=== PATIENT | male | born 1960 | race American Indian/Alaskan Native ===

== ENCOUNTER 2017-08-09 19:13 | Inpatient (IN) | payer OTHER ==
[2017-08-09] MEDS ORDERED: TYLENOL ONE (19:21)
[2017-08-09] MEDS ORDERED: TYLENOL PO ONE (19:23)
--- NOTE | 2017-08-09 22:07 | XRay Report ---
FINAL REPORT PROCEDURE: XR CHEST ROUTINE 2V TECHNIQUE: PA and lateral chest radiographs were obtained. CPT 55702 HISTORY: Cough and congestion COMPARISON: No prior studies are available for comparison. FINDINGS: Heart size and pulmonary vasculature appear normal. There is minimal blunting of the left lateral costophrenic angle suggesting minimal effusion. There appears to be patchy infiltrate present in the left lower lobe. There is also an asymmetric density in the right upper lobe lateral to the right hilum. This may represent a a 2nd location of infiltrate. I cannot exclude a pulmonary nodule. This density extends over approximately 2.1 x 1.2 centimeter. Small amount of patchy alveolar density also present in the right lower lobe. No acute bony abnormalities are identified. IMPRESSION: Alveolar densities in both lower lobes greatest on the left suggesting pneumonia. Possible additional infiltrate right upper lobe versus a pulmonary nodule. Follow-up chest x-ray recommended to ensure these densities resolve. Minimal left pleural effusion is present..
[2017-08-10] MEDS ORDERED: LEVAQUIN 750MG/150ML 750 MG/150 ML BAG IV ONE (17:08)
[2017-08-10] MEDS ORDERED: NACL 0.9% 1000 ML IV ONE ×2 (17:08→19:37)
[2017-08-10] MEDS ORDERED: TYLENOL ONE (17:53)
[2017-08-10] MEDS ORDERED: MOTRIN PO ONE ×3 (17:53→17:56)
[2017-08-10] MEDS ORDERED: LEVAQUIN PO ONE (17:54)
[2017-08-10] MEDS ORDERED: PROVENTIL IH ONE (17:54)
--- NOTE | 2017-08-10 17:56 | Emergency Department Report ---
ED General Adult HPI - General Chief complaint: Fever Stated complaint: FEVER Source: patient, RN notes reviewed Mode of arrival: Ambulatory Limitations: No Limitations - History of Present Illness Initial comments: This is a 56-year-old male who was previously unknown to this provider, the patient's does not have any chronic medical conditions that he is aware of. He presents to the ER with cough, malaise, mucus production, weakness, body aches for 3-4 days, also reports dark and Coca-Cola colored urine. Positive fevers, positive chills. Symptoms present for greater than 72 hours. -: Gradual Severity scale (0 -10): 8 Consistency: constant Improves with: rest Worsens with: movement Associated Symptoms: cough, diaphoresis, fever/chills, loss of appetite, malaise , shortness of breath, weakness. denies: confusion, chest pain - Related Data Home Medications Medication Instructions Recorded Confirmed Last Taken No Known Home Medications [No 08/11/17 08/11/17 Unknown Reported Home Medications] Allergies Allergy/AdvReac Type Severity Reaction Status Date / Time No Known Allergies Allergy Unverified 08/09/17 19:20 ED Review of Systems ROS: Stated complaint: FEVER Other details as noted in HPI Constitutional: fever, malaise Eyes: denies: vision change ENT: congestion Respiratory: cough, shortness of breath Cardiovascular: denies: chest pain Gastrointestinal: denies: vomiting Genitourinary: as per HPI Musculoskeletal: arthralgia, myalgia Skin: denies: lesions Neurological: weakness Psychiatric: denies: anxiety ED Past Medical Hx - Past Medical History Previous Medical History?: No - Surgical History Past Surgical History?: No - Social History Smoking Status: Never Smoker Substance Use Type: None - Medications Home Medications: Home Medications Medication Instructions Recorded Confirmed Last Taken Type No Known Home Medications [No 08/11/17 08/11/17 Unknown History Reported Home Medications] ED Physical Exam - General Limitations: No Limitations General appearance: alert, in no apparent distress - Head Head exam: Present: atraumatic, normocephalic - Eye Eye exam: Present: normal appearance, EOMI. Absent: nystagmus - ENT ENT exam: Present: normal exam, normal orophraynx, mucous membranes moist - Neck Neck exam: Present: normal inspection, full ROM. Absent: tenderness, meningismus - Respiratory Respiratory exam: Present: rhonchi. Absent: respiratory distress - Cardiovascular Cardiovascular Exam: Present: normal rhythm, tachycardia, normal heart sounds. Absent: systolic murmur, diastolic murmur, rubs, gallop - GI/Abdominal GI/Abdominal exam: Present: soft, normal bowel sounds. Absent: distended, tenderness, guarding, rebound, rigid, pulsatile mass - Rectal Rectal exam: Present: deferred - Extremities Exam Extremities exam: Present: normal inspection, full ROM, normal capillary refill. Absent: pedal edema, joint swelling, calf tenderness - Back Exam Back exam: Present: normal inspection, full ROM. Absent: tenderness, CVA tenderness (R), paraspinal tenderness, vertebral tenderness - Neurological Exam Neurological exam: Present: alert, oriented X3, CN II-XII intact, normal gait, other (Extraocular movements intact. Tongue midline. No facial droop. Facial sensation intact to light touch in the V1, V2, V3 distribution bilaterally. 5 and 5 strength in 4 extremities.. Sensation is intact to light touch in 4 extremities.). Absent: motor sensory deficit - Psychiatric Psychiatric exam: Present: normal affect, normal mood - Skin Skin exam: Present: warm, dry, intact, normal color. Absent: rash ED Course Vital Signs 08/09/17 08/10/17 08/10/17 19:20 01:26 12:12 Temperature 102.2 F H 99.4 F 101.6 F H Pulse Rate 116 H 100 H 107 H Pulse Rate [ Anterior Bilateral Throughout] Respiratory 20 18 18 Rate Respiratory Rate [Anterior Bilateral Throughout] Blood Pressure 146/90 137/91 144/87 Blood Pressure [Left] O2 Sat by Pulse 96 96 100 Oximetry 08/10/17 08/10/17 08/10/17 17:34 18:18 18:20 Temperature 101.5 F H Pulse Rate 11 L 107 H Pulse Rate [ Anterior Bilateral Throughout] Respiratory 21 21 Rate Respiratory Rate [Anterior Bilateral Throughout] Blood Pressure Blood Pressure 136/83 [Left] O2 Sat by Pulse 98 98 Oximetry 08/10/17 08/10/17 08/10/17 18:36 18:59 21:00 Temperature Pulse Rate 96 H Pulse Rate [ 108 H 104 H Anterior Bilateral Throughout] Respiratory 24 Rate Respiratory 18 20 Rate [Anterior Bilateral Throughout] Blood Pressure 100/77 Blood Pressure [Left] O2 Sat by Pulse 91 Oximetry 08/10/17 08/10/1718 21:30 21:40 21:41 Temperature 98.7 F Pulse Rate 89 94 H Pulse Rate [ Anterior Bilateral Throughout] Respiratory 15 Rate Respiratory Rate [Anterior Bilateral Throughout] Blood Pressure 113/73 113/73 Blood Pressure [Left] O2 Sat by Pulse 97 90 Oximetry - EJ/Peripheral Line Neck L Time Out Performed: Yes Indications: nurses unable to establis Skin Cleansed in Sterile Fashion: Yes Size: 20 Dressing Placed: Tegaderm Patient Tolerated Procedure: well ED Medical Decision Making - Lab Data Result diagrams: 08/11/17 15:54 08/10/17 17:38 Vital Signs 08/09/17 08/10/17 08/10/17 19:20 01:26 12:12 Temperature 102.2 F H 99.4 F 101.6 F H Pulse Rate 116 H 100 H 107 H Pulse Rate [ Anterior Bilateral Throughout] Respiratory 20 18 18 Rate Respiratory Rate [Anterior Bilateral Throughout] Blood Pressure 146/90 137/91 144/87 Blood Pressure [Left] O2 Sat by Pulse 96 96 100 Oximetry 08/10/17 08/10/17 08/10/17 17:34 18:18 18:20 Temperature 101.5 F H Pulse Rate 11 L 107 H Pulse Rate [ Anterior Bilateral Throughout] Respiratory 21 21 Rate Respiratory Rate [Anterior Bilateral Throughout] Blood Pressure Blood Pressure 136/83 [Left] O2 Sat by Pulse 98 98 Oximetry 08/10/17 08/10/17 18:36 18:59 Temperature Pulse Rate Pulse Rate [ 108 H 104 H Anterior Bilateral Throughout] Respiratory Rate Respiratory 18 20 Rate [Anterior Bilateral Throughout] Blood Pressure Blood Pressure [Left] O2 Sat by Pulse Oximetry Labs 08/10/17 08/10/17 08/10/17 17:38 17:38 17:38 WBC 6.5 RBC 5.89 H Hgb 17.6 H Hct 52.2 H MCV 89 MCH 30 MCHC 34 RDW 14.2 Plt Count 104 L Lymph % (Auto) 7.9 L [place] % (Auto) 4.6 Eos % (Auto) 0.7 Baso % (Auto) 2.3 H Lymph # 0.5 L [place] # 0.3 Eos # 0.0 Baso # 0.1 Seg Neutrophils % 84.5 H Seg Neutrophils # 5.5 Sodium 136 L Potassium 4.5 Chloride 92.8 L Carbon Dioxide 27 Anion Gap 21 BUN 16 Creatinine 1.1 Estimated GFR > 60 BUN/Creatinine Ratio 15 Glucose 172 H Calcium 8.3 L Total Bilirubin 0.60 AST 553 H ALT 209 H Alkaline Phosphatase 72 Total Creatine Kinase 11915 H Total Protein 6.5 Albumin 3.7 L Albumin/Globulin Ratio 1.3 Urine Color Urine Turbidity Urine pH Ur Specific [place] Urine Protein Urine Glucose (UA) Urine Ketones Urine Blood Urine Nitrite Urine Bilirubin Urine Urobilinogen Ur Leukocyte Esterase Urine WBC (Auto) Urine RBC (Auto) U Epithel Cells (Auto) Urine Mucus 08/10/17 18:44 WBC RBC Hgb Hct MCV MCH MCHC RDW Plt Count Lymph % (Auto) [place] % (Auto) Eos % (Auto) Baso % (Auto) Lymph # [place] # Eos # Baso # Seg Neutrophils % Seg Neutrophils # Sodium Potassium Chloride Carbon Dioxide Anion Gap BUN Creatinine Estimated GFR BUN/Creatinine Ratio Glucose Calcium Total Bilirubin AST ALT Alkaline Phosphatase Total Creatine Kinase Total Protein Albumin Albumin/Globulin Ratio Urine Color Yellow Urine Turbidity Clear Urine pH 6.0 Ur Specific [place] 1.031 H Urine Protein 100 mg/dl Urine Glucose (UA) Neg Urine Ketones Neg Urine Blood Lg Urine Nitrite Neg Urine Bilirubin Neg Urine Urobilinogen 2.0 Ur Leukocyte Esterase Neg Urine WBC (Auto) 3.0 Urine RBC (Auto) 4.0 U Epithel Cells (Auto) < 1.0 Urine Mucus Few - Radiology Data Radiology results: report reviewed, image reviewed X-ray of the chest suggest multilobar pneumonia - Medical Decision Making Differential diagnosis, including but not limited to: Pneumonia, sepsis, rhabdomyolysis, transaminitis Assessment and plan: 56-year-old male, tachycardic, febrile, x-ray of the chest demonstrates multilobar pneumonia, as transaminitis, complaint of dark colored urine, CK greater than 40,000, suggestive of sepsis secondary to pneumonia with concurrent rhabdomyolysis. Patient is febrile, protecting his airway at this time, eating and drinking without difficulty, and speaking on a cellular phone. He will be treated according to the sepsis pathway with IV fluids, and appropriate targeted antibiotics. Of note, initial plan was to discharge the patient, because he appeared to be clinically well and was tolerating oral feeds. This is why blood cultures were taken after the patient's antibiotics were given. However his transaminitis was reviewed and appreciated, and his concurrent rhabdomyolysis was also reviewed and subsequently appreciated. Case was discussed with the Hospital physician, Dr. Tompkins, who accepted the patient to the medical service for the aforementioned conditions. Patient was informed of his findings, and was amenable to being admitted. Critical care attestation.: If time is entered above; I have spent that time in minutes in the direct care of this critically ill patient, excluding procedure time. ED Disposition Clinical Impression: SIRS (systemic inflammatory response syndrome) Rhabdomyolysis Qualifiers: Rhabdomyolysis type: non-traumatic Qualified Code(s): M62.82 - Rhabdomyolysis Disposition: 09 OP ADMIT IP TO THIS HOSP Is pt being admited?: Yes Condition: Good
[2017-08-10 18:14] LABS: Basophils # (Auto) 0.1 K/mm3 (0.0-0.1); Basophils % (Auto) 2.3 % (0.0-1.8); Eosinophils % (Auto) 0.7 % (0.0-4.3); Hematocrit 52.2 % (35.5-45.6); Hemoglobin 17.6 gm/dl (11.8-15.2); Lymphocytes # (Auto) 0.5 K/mm3 (1.2-5.4); Lymphocytes % (Auto) 7.9 % (13.4-35.0); Mean Corpuscular HGB Conc 34 % (32-34); Mean Corpuscular Hemoglobin 30 pg (28-32); Mean Corpuscular Volume 89 fl (84-94); Monocytes # (Auto) 0.3 K/mm3 (0.0-0.8); Monocytes % (Auto) 4.6 % (0.0-7.3); Red Blood Count 5.89 M/mm3 (3.65-5.03); Red Cell Distribution Width 14.2 % (13.2-15.2)
[2017-08-10 18:18] LABS: Platelet Count 104 K/mm3 (140-440)
[2017-08-10 18:35] LABS: Albumin 3.7 g/dL (3.9-5); BUN/Creatinine Ratio 15; Blood Urea Nitrogen 16 mg/dL (9-20); Calcium 8.3 mg/dL (8.4-10.2); Hemolysis Index 168
[2017-08-10 18:55] LABS: Alanine Aminotransferase 209 units/L (7-56)
[2017-08-10 19:12] LABS: Bilirubin,Urine NEG (Negative); Blood,Urine LG (Negative); Color,Urine Yellow (Yellow); Mucus,Urine FEW /HPF; Nitrite,Urine NEG (Negative)
--- NOTE | 2017-08-10 20:30 | History and Physical Report ---
History of Present Illness Date of examination: 08/10/17 Date of admission: 08/10/17 19:43 Chief complaint: CC: Fever for 3 days History of present illness: - History of Present Illness Initial comments: This is a 56-year-old male with no sig PMH presents to the ER with cough, malaise, mucus production, weakness, body aches for 3-4 days, also reports dark and Coca-Cola colored urine. Positive fevers, positive chills. Symptoms present for greater than 72 hours. Gradual onset.No recent travel. No exacerbating or relieving factors. Past Medical History Previous Medical History?: No Surgical History Past Surgical History?: No Social History Smoking Status: Never Smoker Substance Use Type: None Family Hx Htn Rview of systems: Stated complaint: FEVER Other details as noted in HPI Constitutional: fever, malaise Eyes: denies: vision change ENT: congestion Respiratory: cough, shortness of breath Cardiovascular: denies: chest pain Gastrointestinal: denies: vomiting Genitourinary: as per HPI Musculoskeletal: arthralgia, myalgia Skin: denies: lesions Neurological: weakness Psychiatric: denies: anxiety Medications and Allergies Allergies Allergy/AdvReac Type Severity Reaction Status Date / Time No Known Allergies Allergy Unverified 08/09/17 19:20 Home Medications Medication Instructions Recorded Confirmed Last Taken Type No Known Home Medications [No 08/11/17 08/11/17 Unknown History Reported Home Medications] Exam - Constitutional Vitals: Temp Pulse Resp BP Pulse Ox 101.5 F H 104 H 20 136/83 98 08/10/17 17:34 08/10/17 18:59 08/10/17 18:59 08/10/17 17:34 08/10/17 18:18 General appearance: Present: mild distress, well-nourished - EENT Eyes: Present: PERRL ENT: hearing intact, clear oral mucosa - Neck Neck: Present: supple, normal ROM - Respiratory Respiratory effort: normal Respiratory: bilateral: CTA - Cardiovascular Heart rate: 90 Rhythm: regular Heart Sounds: Present: S1 & S2. Absent: rub, click - Extremities Extremities: no ischemia, pulses intact, pulses symmetrical, No edema Peripheral Pulses: within normal limits - Abdominal General gastrointestinal: Present: soft, non-tender, non-distended, normal bowel sounds Male genitourinary: Present: normal - Rectal Rectal Exam: deferred - Integumentary Integumentary: Present: clear, warm, dry - Musculoskeletal Musculoskeletal: gait normal, strength equal bilaterally - Psychiatric Psychiatric: appropriate mood/affect, intact judgment & insight - Neurologic Neurologic: CNII-XII intact, moves all extremities - Allied Health Allied health notes reviewed: nursing, case management Results - Labs CBC & Chem 7: 08/10/17 17:38 08/10/17 17:38 Labs: Laboratory Last Values WBC 6.5 K/mm3 (4.5-11.0) 08/10/17 17:38 RBC 5.89 M/mm3 (3.65-5.03) H 08/10/17 17:38 Hgb 17.6 gm/dl (11.8-15.2) H 08/10/17 17:38 Hct 52.2 % (35.5-45.6) H 08/10/17 17:38 MCV 89 fl (84-94) 08/10/17 17:38 MCH 30 pg (28-32) 08/10/17 17:38 MCHC 34 % (32-34) 08/10/17 17:38 RDW 14.2 % (13.2-15.2) 08/10/17 17:38 Plt Count 104 K/mm3 (140-440) L 08/10/17 17:38 Lymph % (Auto) 7.9 % (13.4-35.0) L 08/10/17 17:38 [place] % (Auto) 4.6 % (0.0-7.3) 08/10/17 17:38 Eos % (Auto) 0.7 % (0.0-4.3) 08/10/17 17:38 Baso % (Auto) 2.3 % (0.0-1.8) H 08/10/17 17:38 Lymph # 0.5 K/mm3 (1.2-5.4) L 08/10/17 17:38 [place] # 0.3 K/mm3 (0.0-0.8) 08/10/17 17:38 Eos # 0.0 K/mm3 (0.0-0.4) 08/10/17 17:38 Baso # 0.1 K/mm3 (0.0-0.1) 08/10/17 17:38 Seg Neutrophils % 84.5 % (40.0-70.0) H 08/10/17 17:38 Seg Neutrophils # 5.5 K/mm3 (1.8-7.7) 08/10/17 17:38 Sodium 136 mmol/L (137-145) L 08/10/17 17:38 Potassium 4.5 mmol/L (3.6-5.0) 08/10/17 17:38 Chloride 92.8 mmol/L (98-107) L 08/10/17 17:38 Carbon Dioxide 27 mmol/L (22-30) 08/10/17 17:38 Anion Gap 21 mmol/L 08/10/17 17:38 BUN 16 mg/dL (9-20) 08/10/17 17:38 Creatinine 1.1 mg/dL (0.8-1.5) 08/10/17 17:38 Estimated GFR > 60 ml/min 08/10/17 17:38 BUN/Creatinine Ratio 15 % 08/10/17 17:38 Glucose 172 mg/dL (75-100) H 08/10/17 17:38 Calcium 8.3 mg/dL (8.4-10.2) L 08/10/17 17:38 Total Bilirubin 0.60 mg/dL (0.1-1.2) 08/10/17 17:38 AST 553 units/L (5-40) H 08/10/17 17:38 ALT 209 units/L (7-56) H 08/10/17 17:38 Alkaline Phosphatase 72 units/L (35-129) 08/10/17 17:38 Total Creatine Kinase 77397 units/L (55-170) H 08/10/17 17:38 Total Protein 6.5 g/dL (6.3-8.2) 08/10/17 17:38 Albumin 3.7 g/dL (3.9-5) L 08/10/17 17:38 Albumin/Globulin Ratio 1.3 % 08/10/17 17:38 Urine Color Yellow (Yellow) 08/10/17 18:44 Urine Turbidity Clear (Clear) 08/10/17 18:44 Urine pH 6.0 (5.0-7.0) 08/10/17 18:44 Ur Specific [place] 1.031 (1.003-1.030) H 08/10/17 18:44 Urine Protein 100 mg/dl mg/dL (Negative) 08/10/17 18:44 Urine Glucose (UA) Neg mg/dL (Negative) 08/10/17 18:44 Urine Ketones Neg mg/dL (Negative) 08/10/17 18:44 Urine Blood Lg (Negative) 08/10/17 18:44 Urine Nitrite Neg (Negative) 08/10/17 18:44 Urine Bilirubin Neg (Negative) 08/10/17 18:44 Urine Urobilinogen 2.0 mg/dL (<2.0) 08/10/17 18:44 Ur Leukocyte Esterase Neg (Negative) 08/10/17 18:44 Urine WBC (Auto) 3.0 /HPF (0.0-6.0) 08/10/17 18:44 Urine RBC (Auto) 4.0 /HPF (0.0-6.0) 08/10/17 18:44 U Epithel Cells (Auto) < 1.0 /HPF (0-13.0) 08/10/17 18:44 Urine Mucus Few /HPF 08/10/17 18:44 Short CBC 08/10/17 Range/Units 17:38 WBC 6.5 (4.5-11.0) K/mm3 Hgb 17.6 H (11.8-15.2) gm/dl Hct 52.2 H (35.5-45.6) % Plt Count 104 L (140-440) K/mm3 BMP 08/10/17 17:38 Sodium 136 L Potassium 4.5 Chloride 92.8 L Carbon Dioxide 27 BUN 16 Creatinine 1.1 Glucose 172 H Calcium 8.3 L Cardiac Enzymes 08/10/17 08/10/17 Range/Units 17:38 21:12 Total Creatine Kinase 50189 H 67229 H (55-170) units/L Liver Function 08/10/17 Range/Units 17:38 Total Bilirubin 0.60 (0.1-1.2) mg/dL AST 553 H (5-40) units/L ALT 209 H (7-56) units/L Alkaline Phosphatase 72 (35-129) units/L Albumin 3.7 L (3.9-5) g/dL Urine 08/10/17 Range/Units 18:44 Urine Color Yellow (Yellow) Urine pH 6.0 (5.0-7.0) Ur Specific [place] 1.031 H (1.003-1.030) Urine Protein 100 mg/dl (Negative) mg/dL Urine Glucose (UA) Neg (Negative) mg/dL - Imaging and Cardiology EKG: report reviewed Chest x-ray: report reviewed (Alveolar densities both lower lobes greatest on left suggesting PneumoniaAlso RUL infiltrate) Assessment and Plan Advance Directives: Yes (Full code) VTE prophylaxis?: Chemical - Patient Problems (1) SIRS (systemic inflammatory response syndrome) Current Visit: Yes Status: Acute Plan to address problem: In view of Bilateral alveolar densities high temp of 102.2 Rhabdo and transaminitis ---in favor of SIRS. IV Zosyn initiated ID consult requested (2) Rhabdomyolysis Current Visit: Yes Status: Acute Qualifiers: Rhabdomyolysis type: non-traumatic Qualified Code(s): M62.82 - Rhabdomyolysis Plan to address problem: Severe IV Fluids and recheck ck q12h. (3) Bilateral pneumonia Current Visit: Yes Status: Acute Qualifiers: Lung location: lower lobe of lung Plan to address problem: IV Zosyn and Vanc ID consult Aspiration unlikely Legionnaires to be considered (4) Transaminitis Current Visit: Yes Status: Acute Plan to address problem: Sec to Sepsis/pneumonia Check Hepatitis profile (5) DVT prophylaxis Current Visit: Yes Status: Acute
[2017-08-10] MEDS ORDERED: MORPHINE IV PRN ×2 (20:43)
[2017-08-10] MEDS ORDERED: TYLENOL PO PRN (20:43)
[2017-08-10] MEDS ORDERED: DULCOLAX PR PRN (20:43)
[2017-08-10] MEDS ORDERED: MILK OF MAGNESIA PO PRN (20:43)
[2017-08-10] MEDS ORDERED: PERCOCET 5/325 PO PRN (20:43)
[2017-08-10] MEDS ORDERED: ZOFRAN IV PRN (20:43)
[2017-08-10] MEDS: ZOSYN/NS 4.5GM/100ML 4.5 GM/100 ML VIAL IV SCH (22:45)
[2017-08-10] MEDS: PEPCID IV SCH (22:48)
[2017-08-11] MEDS: ZOSYN/NS 4.5GM/100ML 4.5 GM/100 ML VIAL IV SCH ×2 (05:39→13:37)
[2017-08-11] MEDS ORDERED: Fluarix Quad 2017-2018(36 MOS+ IM ONE ×2 (06:00→12:00)
[2017-08-11] MEDS ORDERED: VANCOMYCIN PHARMACY TO DOSE IV SCH (07:00)
[2017-08-11] MEDS ORDERED: VANCOMYCIN 2,000 MG in NACL 0.9% 500 ML 500 ML IV SCH (08:00)
--- NOTE | 2017-08-11 09:50 | Progress Note ---
Assessment and Plan Assessment and plan: This is a 56-year-old male with no sig PMH presents to the ER with cough, malaise, mucus production, weakness, body aches for 3-4 days, and dark and Coca- Cola colored urine. Sepsis continue Zosyn initiated ID consult requested Rhabdomyolysis Severe IV Fluids and recheck ck q12h. Bilateral pneumonia IV Zosyn and Vanc ID consult Legionnaires to be considered will need fup CXR in 8 weeks Transaminitis Sec to Sepsis/pneumonia Check Hepatitis profile DVT prophylaxis Current Visit: Yes Status: Acute History Interval history: Review of systems Constitutional: Febrile to 101.5 overnight, complaining of malaise and muscle aches CVS: No chest pain, no orthopnea, no dyspnea on exertion, no pedal edema GI: No abdominal pain, no diarrhea, no vomiting, no constipation Respiratory: Admits productive cough and shortness of breath Hospitalist Physical - Physical exam Narrative exam: General.: Appears well, no distress, nontoxic HEENT: Moist mucous membranes, extraocular muscles intact, no lymphadenopathy Neck: supple Cardiac: S1-S2 heard Lungs: Bilateral crackles Abdomen: soft , nontender, nondistended, bowel sounds positive Extremities: no edema clubbing or cyanosis Skin: no rash or lesions Neurologic: no gross focal deficits Psych: appropriate behavior, appropriate mood, corporative, judgment intact - Constitutional Vitals: Temp Pulse Resp BP Pulse Ox 99.0 F 87 20 100/60 96 08/11/17 08:03 08/11/17 08:03 08/11/17 08:03 08/11/17 08:03 08/11/17 08:03 General appearance: Present: mild distress, well-nourished Results - Labs CBC & Chem 7: 08/10/17 17:38 08/10/17 17:38 Labs: Laboratory Last Values WBC 6.5 K/mm3 (4.5-11.0) 08/10/17 17:38 RBC 5.89 M/mm3 (3.65-5.03) H 08/10/17 17:38 Hgb 17.6 gm/dl (11.8-15.2) H 08/10/17 17:38 Hct 52.2 % (35.5-45.6) H 08/10/17 17:38 MCV 89 fl (84-94) 08/10/17 17:38 MCH 30 pg (28-32) 08/10/17 17:38 MCHC 34 % (32-34) 08/10/17 17:38 RDW 14.2 % (13.2-15.2) 08/10/17 17:38 Plt Count 104 K/mm3 (140-440) L 08/10/17 17:38 Lymph % (Auto) 7.9 % (13.4-35.0) L 08/10/17 17:38 [place] % (Auto) 4.6 % (0.0-7.3) 08/10/17 17:38 Eos % (Auto) 0.7 % (0.0-4.3) 08/10/17 17:38 Baso % (Auto) 2.3 % (0.0-1.8) H 08/10/17 17:38 Lymph # 0.5 K/mm3 (1.2-5.4) L 08/10/17 17:38 [place] # 0.3 K/mm3 (0.0-0.8) 08/10/17 17:38 Eos # 0.0 K/mm3 (0.0-0.4) 08/10/17 17:38 Baso # 0.1 K/mm3 (0.0-0.1) 08/10/17 17:38 Seg Neutrophils % 84.5 % (40.0-70.0) H 08/10/17 17:38 Seg Neutrophils # 5.5 K/mm3 (1.8-7.7) 08/10/17 17:38 Sodium 136 mmol/L (137-145) L 08/10/17 17:38 Potassium 4.5 mmol/L (3.6-5.0) 08/10/17 17:38 Chloride 92.8 mmol/L (98-107) L 08/10/17 17:38 Carbon Dioxide 27 mmol/L (22-30) 08/10/17 17:38 Anion Gap 21 mmol/L 08/10/17 17:38 BUN 16 mg/dL (9-20) 08/10/17 17:38 Creatinine 1.1 mg/dL (0.8-1.5) 08/10/17 17:38 Estimated GFR > 60 ml/min 08/10/17 17:38 BUN/Creatinine Ratio 15 % 08/10/17 17:38 Glucose 172 mg/dL (75-100) H 08/10/17 17:38 Lactic Acid 2.00 mmol/L (0.7-2.0) 08/10/17 21:12 Calcium 8.3 mg/dL (8.4-10.2) L 08/10/17 17:38 Total Bilirubin 0.60 mg/dL (0.1-1.2) 08/10/17 17:38 AST 553 units/L (5-40) H 08/10/17 17:38 ALT 209 units/L (7-56) H 08/10/17 17:38 Alkaline Phosphatase 72 units/L (35-129) 08/10/17 17:38 Total Creatine Kinase 50402 units/L (55-170) H 08/10/17 21:12 Total Protein 6.5 g/dL (6.3-8.2) 08/10/17 17:38 Albumin 3.7 g/dL (3.9-5) L 08/10/17 17:38 Albumin/Globulin Ratio 1.3 % 08/10/17 17:38 Urine Color Yellow (Yellow) 08/10/17 18:44 Urine Turbidity Clear (Clear) 08/10/17 18:44 Urine pH 6.0 (5.0-7.0) 08/10/17 18:44 Ur Specific [place] 1.031 (1.003-1.030) H 08/10/17 18:44 Urine Protein 100 mg/dl mg/dL (Negative) 08/10/17 18:44 Urine Glucose (UA) Neg mg/dL (Negative) 08/10/17 18:44 Urine Ketones Neg mg/dL (Negative) 08/10/17 18:44 Urine Blood Lg (Negative) 08/10/17 18:44 Urine Nitrite Neg (Negative) 08/10/17 18:44 Urine Bilirubin Neg (Negative) 08/10/17 18:44 Urine Urobilinogen 2.0 mg/dL (<2.0) 08/10/17 18:44 Ur Leukocyte Esterase Neg (Negative) 08/10/17 18:44 Urine WBC (Auto) 3.0 /HPF (0.0-6.0) 08/10/17 18:44 Urine RBC (Auto) 4.0 /HPF (0.0-6.0) 08/10/17 18:44 U Epithel Cells (Auto) < 1.0 /HPF (0-13.0) 08/10/17 18:44 Urine Mucus Few /HPF 08/10/17 18:44
[2017-08-11] MEDS: PEPCID IV SCH ×2 (10:00→22:31)
--- NOTE | 2017-08-11 13:45 | Consultation ---
History of Present Illness - Reason for Consult Consult date: 08/11/17 [facility] Requesting physician: VINCE SHAH - History of Present Illness 54 years old male with no significant history admitted on 08/10/2017 due to 3 days history of generalized malaise, cough with some production, subjective fever and dark urine. He also was complaining of abdominal pain, 6 out of 10, periumbilical, crampy. Patient denies any sick contacts. Denies N/V/D. He lives in [place] on was driving on his way to [place] when he feels that she feels some malaise and decided to come to the emergency room. In the emergency room, initial temperature was 102.2, heart rate was 16, respiration 20, O2 sat 96%, blood pressure 146/90. Initial white count 6.5. Hemoglobin 17.6. Platelets 104. Creatinine 1.1. AST is 553, ALT 209. CK was 43,000 964. Urinalysis was negative for infection +large blood. Chest x-ray showed alveolar densities bibasilar more on the left than the right and a possible right upper lobe infiltrate. Microbiology: Blood cultures: 08/10 ngtd Urine cultures: Current Antimicrobials: Zosyn 08/10 Vancomycin 08/10 Previous Antimicrobials: Past History Past Medical History: No medical history Past Surgical History: No surgical history Social history: no significant social history, . denies: alcohol abuse, prescription drug abuse, IV drug use Family history: no significant family history Medications and Allergies Allergies Allergy/AdvReac Type Severity Reaction Status Date / Time No Known Allergies Allergy Unverified 08/09/17 19:20 Home Medications Medication Instructions Recorded Confirmed Last Taken Type No Known Home Medications [No 08/11/17 08/11/17 Unknown History Reported Home Medications] Active Meds: Active Medications Acetaminophen (Tylenol) 650 mg PO Q4H PRN PRN Reason: Pain MILD(1-3)/Fever >100.5/SIMMS Bisacodyl (Dulcolax) 10 mg NV QDAY PRN PRN Reason: Constipation unrelieved by MOM Enoxaparin Sodium (Lovenox) 40 mg SUB-Q QDAY@2200 JEANNE Famotidine (Pepcid) 20 mg IV BID [facility] Last Admin: 08/11/17 10:00 Dose: 20 mg Sodium Chloride (Nacl 0.9% 1000 Ml) 1,000 mls @ 250 mls/hr IV DIRECT JEANNE Piperacillin Sod/Tazobactam Sod (Zosyn/Ns 4.5gm/100ml) 4.5 gm in 100 mls @ 200 mls/hr IV Q8HR JEANNE PRN Reason: Protocol Last Admin: 08/11/17 13:37 Dose: 200 mls/hr Vancomycin HCl 2,000 mg/ (Sodium Chloride) 520 mls @ 250 mls/hr IV Q12H [facility] Last Admin: 08/11/17 09:59 Dose: 250 mls/hr Magnesium Hydroxide (Milk Of Magnesia) 30 ml PO Q4H PRN PRN Reason: Constipation Morphine Sulfate (Morphine) 2 mg IV Q4H PRN PRN Reason: Pain, Moderate (4-6) Morphine Sulfate (Morphine) 4 mg IV Q4H PRN PRN Reason: Pain , Severe (7-10) Ondansetron HCl (Zofran) 4 mg IV Q8H PRN PRN Reason: N/V unrelieved by Reglan Oxycodone/Acetaminophen (Percocet 5/325) 1 tab PO Q6H PRN PRN Reason: Pain, Moderate (4-6) Vancomycin HCl (Vancomycin Pharmacy To Dose) 1 each IV PKCONSULT JEANNE PRN Reason: Protocol Review of Systems All systems: negative (as per HPI) Physical Examination - Physical Exam Narrative exam: General appearance: Alert in NAD, conversant Eyes: anicteric sclerae, moist conjunctivae; no lid-lag; PERRLA HENT: Atraumatic; oropharynx clear with moist mucous membranes and no mucosal ulcerations/no oral thrush; normal hard and soft palate. Normal external ears. Neck: Trachea midline; supple, no thyromegaly or lymphadenopathy Lungs: left sided rhonchi CV: RRR, no murmurs Abdomen: Soft, non-tender; no masses or hepatosplenomegaly Extremities: No peripheral edema or extremity lymphadenopathy Skin: Normal temperature, turgor and texture; no rash, ulcers or subcutaneous nodules Psych: Appropriate affect, alert and oriented to person, place and time. Neuro: alert and oriented x 3. Moving all extermities Lines: No CVL / PICC - Constitutional Vitals: Vital Signs Temp Pulse Resp BP Pulse Ox 99.0 F 87 20 100/60 96 08/11/17 08:03 08/11/17 08:03 08/11/17 08:03 08/11/17 08:03 08/11/17 08:03 Temperature -Last 24 Hours Temperature 99.0 F Temperature 98.4 F Temperature 98.2 F Temperature 98.7 F Temperature 101.5 F Results - Labs CBC & Chem 7: 08/10/17 17:38 08/10/17 17:38 Labs: Abnormal lab results 08/10/17 08/10/17 08/10/17 Range/Units 17:38 17:38 17:38 RBC 5.89 H (3.65-5.03) M/mm3 Hgb 17.6 H (11.8-15.2) gm/dl Hct 52.2 H (35.5-45.6) % Plt Count 104 L (140-440) K/mm3 Lymph % (Auto) 7.9 L (13.4-35.0) % Baso % (Auto) 2.3 H (0.0-1.8) % Lymph # 0.5 L (1.2-5.4) K/mm3 Seg Neutrophils % 84.5 H (40.0-70.0) % Sodium 136 L (137-145) mmol/L Chloride 92.8 L (98-107) mmol/L Glucose 172 H (75-100) mg/dL Calcium 8.3 L (8.4-10.2) mg/dL AST 553 H (5-40) units/L ALT 209 H (7-56) units/L Total Creatine Kinase 91699 H (55-170) units/L Albumin 3.7 L (3.9-5) g/dL Ur Specific [place] (1.003-1.030) 08/10/17 08/10/17 Range/Units 18:44 21:12 RBC (3.65-5.03) M/mm3 Hgb (11.8-15.2) gm/dl Hct (35.5-45.6) % Plt Count (140-440) K/mm3 Lymph % (Auto) (13.4-35.0) % Baso % (Auto) (0.0-1.8) % Lymph # (1.2-5.4) K/mm3 Seg Neutrophils % (40.0-70.0) % Sodium (137-145) mmol/L Chloride (98-107) mmol/L Glucose (75-100) mg/dL Calcium (8.4-10.2) mg/dL AST (5-40) units/L ALT (7-56) units/L Total Creatine Kinase 60325 H (55-170) units/L Albumin (3.9-5) g/dL Ur Specific [place] 1.031 H (1.003-1.030) Assessment and Plan Assessment: 1) Sepsis: Present on admission, manifested by fever, tachycardia. Etiology most likely pneumonia. 2) Bilateral pneumonia: associated with elevated LFTs, hematuria and hyponatremia-suspicion for Legionnaires' 3) Elevated LFTs 4) Rhabdomyolysis: from rigors/chills 5) Hyponatremia 6) Thrombocytopenia Plan: -follow-up blood cultures, urine culture -obtain respiratory cultures, C-reactive protein (CRP) -check influenza antigen PCR in nasopharinx -check Legionella urine antigen, Streptococcus pneumoniae urine antigen -stop zosyn and vancomycin -start ceftriaxone and levaquin to cover CAP and Legionella -check HIV -check viral hepatitis panel Thank you Dr Shah for your consultation, will follow up with you. Cortney Neves MD Infectious Diseases Specialist [facility] M [phone] O [phone]
[2017-08-11] MEDS ORDERED: ROCEPHIN/NS 2 GM/100 ML 2 GM/100 ML BAG IV SCH (14:00)
[2017-08-11] MEDS: LEVAQUIN 750MG/150ML 750 MG/150 ML BAG IV SCH (16:28)
[2017-08-11] MEDS: cefTRIAXone 2 GM in NACL 0.9% 20 ML IV SCH (16:28)
[2017-08-11 17:01] LABS: Basophils % (Auto) 0.2 % (0.0-1.8); Hematocrit 42.8 % (35.5-45.6); Hemoglobin 14.4 gm/dl (11.8-15.2); Lymphocytes # (Auto) 0.9 K/mm3 (1.2-5.4); Mean Corpuscular HGB Conc 34 % (32-34); Mean Corpuscular Hemoglobin 29 pg (28-32); Mean Corpuscular Volume 87 fl (84-94); Monocytes # (Auto) 0.4 K/mm3 (0.0-0.8); Monocytes % (Auto) 8.4 % (0.0-7.3); Platelet Count 124 K/mm3 (140-440); Red Cell Distribution Width 14.2 % (13.2-15.2)
[2017-08-11 17:29] LABS: Hepatitis A Antibody IgM Non-Reactive (NonReactive); Hepatitis B Core IgM Non-Reactive (NonReactive); Hepatitis B Surface Antigen Non-Reactive (Negative); Hepatitis C Virus Antibody Non-Reactive (NonReactive)
[2017-08-11] MEDS: TESSALON PERLES PO SCH ×2 (18:15→22:31)
[2017-08-11] MEDS: LOVENOX SUB-Q SCH (22:31)
[2017-08-11] MEDS: NACL 0.9% 1000 ML 1,000 ML IV SCH (22:32)
[2017-08-12] MEDS: NACL 0.9% 1000 ML 1,000 ML IV SCH ×2 (05:45→14:27)
[2017-08-12] MEDS: TESSALON PERLES PO SCH ×3 (05:45→21:36)
[2017-08-12 06:21] LABS: BUN/Creatinine Ratio 10; Blood Urea Nitrogen 9 mg/dL (9-20); Calcium 7.6 mg/dL (8.4-10.2); Hemolysis Index 10
[2017-08-12] MEDS: LEVAQUIN 750MG/150ML 750 MG/150 ML BAG IV SCH (09:49)
[2017-08-12] MEDS: PEPCID IV SCH (09:59)
[2017-08-12] MEDS ORDERED: ROBITUSSIN AC PO PRN (10:39)
[2017-08-12] MEDS: cefTRIAXone 2 GM in NACL 0.9% 20 ML IV SCH (14:27)
--- NOTE | 2017-08-12 16:37 | Progress Note ---
Assessment and Plan Assessment: 1) Sepsis: better. Etiology most likely pneumonia. CRP=24 2) Bilateral pneumonia: associated with elevated LFTs, hematuria and hyponatremia-suspicion for Legionnaires'. influenza negative. 3) Elevated LFTs: viral hepatitis negative 4) Rhabdomyolysis: from rigors/chills 5) Hyponatremia - better 6) Thrombocytopenia - better Plan: -f/u Legionella urine antigen, Streptococcus pneumoniae urine antigen -continue ceftriaxone and levaquin to cover CAP and Legionella -f/u HIV Thank you Dr Tompkins for your consultation, will follow up with you. Cortney Neves MD Infectious Diseases Specialist [facility] M [phone] O [phone] Subjective Date of service: 08/12/17 Principal diagnosis: pneumonia Interval history: Feels Microbiology: Blood cultures: 08/10 ngtd Urine cultures: Current Antimicrobials: Zosyn 08/10 Vancomycin 08/10 Previous Antimicrobials: Objective - Exam Narrative Exam: General appearance: Alert in NAD, conversant Eyes: anicteric sclerae, moist conjunctivae; no lid-lag; PERRLA HENT: Atraumatic; oropharynx clear with moist mucous membranes and no mucosal ulcerations/no oral thrush; normal hard and soft palate. Normal external ears. Neck: Trachea midline; supple, no thyromegaly or lymphadenopathy Lungs: left sided rhonchi CV: RRR, no murmurs Abdomen: Soft, non-tender; no masses or hepatosplenomegaly Extremities: No peripheral edema or extremity lymphadenopathy Skin: Normal temperature, turgor and texture; no rash, ulcers or subcutaneous nodules Psych: Appropriate affect, alert and oriented to person, place and time. Neuro: alert and oriented x 3. Moving all extermities Lines: No CVL / PICC - Constitutional Vitals: Vital Signs Temp Pulse Resp BP Pulse Ox 98.0 F 92 H 22 115/76 92 08/12/17 10:33 08/12/17 10:33 08/12/17 10:33 08/12/17 10:33 08/12/17 10:33 Temperature -Last 24 Hours Temperature 98.0 F Temperature 100.0 F Temperature 98.9 F Temperature 99.5 F - Labs CBC & Chem 7: 08/11/17 15:54 08/12/17 05:42 Labs: Abnormal lab results 08/11/17 08/11/17 08/12/17 Range/Units 15:54 15:54 05:42 WBC 4.3 L (4.5-11.0) K/mm3 Plt Count 124 L (140-440) K/mm3 [place] % (Auto) 8.4 H (0.0-7.3) % Lymph # 0.9 L (1.2-5.4) K/mm3 Seg Neutrophils % 71.4 H (40.0-70.0) % Chloride 96.8 L (98-107) mmol/L Glucose 131 H (75-100) mg/dL Calcium 7.6 L (8.4-10.2) mg/dL Total Creatine Kinase 47399 H (55-170) units/L C-Reactive Protein 24.00 H (0.00-1.30) mg/dL
--- NOTE | 2017-08-12 18:41 | Progress Note ---
Assessment and Plan Assessment and plan: This is a 56-year-old male with no sig PMH presents to the ER with cough, malaise, mucus production, weakness, body aches for 3-4 days, and dark and Coca- [employer] colored urine. Sepsis continue Zosyn initiated ID consult requested Rhabdomyolysis, nontraumatic Received IV fluids, trended down. Bilateral bacterial pneumonia, most likely due to Gram positives IV Zosyn and Vanc ID consult Legionnaires to be considered will need fup CXR in 8 weeks Transaminitis Sec to Sepsis/pneumonia Check Hepatitis profile Acute bronchitis Nebulizers and Steroids DVT prophylaxis Current Visit: Yes Status: Acute History Interval history: Review of systems Constitutional: No fevers today, complaining of malaise and muscle aches CVS: No chest pain, no orthopnea, no dyspnea on exertion, no pedal edema GI: No abdominal pain, no diarrhea, no vomiting, no constipation Respiratory: Admits productive cough and shortness of breath and wheezing Hospitalist Physical - Physical exam Narrative exam: General.: Appears well, no distress, nontoxic HEENT: Moist mucous membranes, extraocular muscles intact, no lymphadenopathy Neck: supple Cardiac: S1-S2 heard Lungs: Bilateral crackles, and wheezing Abdomen: soft , nontender, nondistended, bowel sounds positive Extremities: no edema clubbing or cyanosis Skin: no rash or lesions Neurologic: no gross focal deficits Psych: appropriate behavior, appropriate mood, corporative, judgment intact - Constitutional Vitals: Temp Pulse Resp BP Pulse Ox 98.8 F 86 22 125/71 94 08/12/17 16:11 08/12/17 16:11 08/12/17 16:11 08/12/17 16:11 08/12/17 16:11 General appearance: Present: mild distress, well-nourished Results - Labs CBC & Chem 7: 08/11/17 15:54 08/12/17 05:42 Labs: Laboratory Last Values WBC 4.3 K/mm3 (4.5-11.0) L 08/11/17 15:54 RBC 4.90 M/mm3 (3.65-5.03) 08/11/17 15:54 Hgb 14.4 gm/dl (11.8-15.2) D 08/11/17 15:54 Hct 42.8 % (35.5-45.6) D 08/11/17 15:54 MCV 87 fl (84-94) 08/11/17 15:54 MCH 29 pg (28-32) 08/11/17 15:54 MCHC 34 % (32-34) 08/11/17 15:54 RDW 14.2 % (13.2-15.2) 08/11/17 15:54 Plt Count 124 K/mm3 (140-440) L 08/11/17 15:54 Lymph % (Auto) 20.0 % (13.4-35.0) 08/11/17 15:54 [place] % (Auto) 8.4 % (0.0-7.3) H 08/11/17 15:54 Eos % (Auto) 0.0 % (0.0-4.3) 08/11/17 15:54 Baso % (Auto) 0.2 % (0.0-1.8) 08/11/17 15:54 Lymph # 0.9 K/mm3 (1.2-5.4) L 08/11/17 15:54 [place] # 0.4 K/mm3 (0.0-0.8) 08/11/17 15:54 Eos # 0.0 K/mm3 (0.0-0.4) 08/11/17 15:54 Baso # 0.0 K/mm3 (0.0-0.1) 08/11/17 15:54 Seg Neutrophils % 71.4 % (40.0-70.0) H 08/11/17 15:54 Seg Neutrophils # 3.1 K/mm3 (1.8-7.7) 08/11/17 15:54 Sodium 139 mmol/L (137-145) 08/12/17 05:42 Potassium 3.7 mmol/L (3.6-5.0) 08/12/17 05:42 Chloride 96.8 mmol/L (98-107) L 08/12/17 05:42 Carbon Dioxide 30 mmol/L (22-30) 08/12/17 05:42 Anion Gap 16 mmol/L 08/12/17 05:42 BUN 9 mg/dL (9-20) 08/12/17 05:42 Creatinine 0.9 mg/dL (0.8-1.5) 08/12/17 05:42 Estimated GFR > 60 ml/min 08/12/17 05:42 BUN/Creatinine Ratio 10 % 08/12/17 05:42 Glucose 131 mg/dL (75-100) H 08/12/17 05:42 Lactic Acid 2.00 mmol/L (0.7-2.0) 08/10/17 21:12 Calcium 7.6 mg/dL (8.4-10.2) L 08/12/17 05:42 Total Bilirubin 0.60 mg/dL (0.1-1.2) 08/10/17 17:38 AST 553 units/L (5-40) H 08/10/17 17:38 ALT 209 units/L (7-56) H 08/10/17 17:38 Alkaline Phosphatase 72 units/L (35-129) 08/10/17 17:38 Total Creatine Kinase 91894 units/L (55-170) H 08/12/17 05:42 C-Reactive Protein 24.00 mg/dL (0.00-1.30) H 08/11/17 15:54 Total Protein 6.5 g/dL (6.3-8.2) 08/10/17 17:38 Albumin 3.7 g/dL (3.9-5) L 08/10/17 17:38 Albumin/Globulin Ratio 1.3 % 08/10/17 17:38 Urine Color Yellow (Yellow) 08/10/17 18:44 Urine Turbidity Clear (Clear) 08/10/17 18:44 Urine pH 6.0 (5.0-7.0) 08/10/17 18:44 Ur Specific [place] 1.031 (1.003-1.030) H 08/10/17 18:44 Urine Protein 100 mg/dl mg/dL (Negative) 08/10/17 18:44 Urine Glucose (UA) Neg mg/dL (Negative) 08/10/17 18:44 Urine Ketones Neg mg/dL (Negative) 08/10/17 18:44 Urine Blood Lg (Negative) 08/10/17 18:44 Urine Nitrite Neg (Negative) 08/10/17 18:44 Urine Bilirubin Neg (Negative) 08/10/17 18:44 Urine Urobilinogen 2.0 mg/dL (<2.0) 08/10/17 18:44 Ur Leukocyte Esterase Neg (Negative) 08/10/17 18:44 Urine WBC (Auto) 3.0 /HPF (0.0-6.0) 08/10/17 18:44 Urine RBC (Auto) 4.0 /HPF (0.0-6.0) 08/10/17 18:44 U Epithel Cells (Auto) < 1.0 /HPF (0-13.0) 08/10/17 18:44 Urine Mucus Few /HPF 08/10/17 18:44 Hepatitis A IgM Ab Non-reactive (NonReactive) 08/11/17 15:54 Hep Bs Antigen Non-reactive (Negative) 08/11/17 15:54 Hep B Core IgM Ab Non-reactive (NonReactive) 08/11/17 15:54 Hepatitis C Antibody Non-reactive (NonReactive) 08/11/17 15:54
[2017-08-12] MEDS ORDERED: DUONEB *Not for PRN Use IH SCH (20:00)
[2017-08-12] MEDS: PEPCID PO SCH (21:36)
[2017-08-12] MEDS: LOVENOX SUB-Q SCH (21:38)
[2017-08-12] MEDS ORDERED: AMBIEN PO SCH (22:00)
[2017-08-12] MEDS ORDERED: PROVENTIL IH PRN (23:12)
[2017-08-13] MEDS: DUONEB *Not for PRN Use IH SCH ×3 (02:24→13:26)
[2017-08-13] MEDS: TESSALON PERLES PO SCH ×2 (05:06→15:04)
[2017-08-13 08:32] LABS: BUN/Creatinine Ratio 10; Blood Urea Nitrogen 9 mg/dL (9-20); Hemolysis Index 20
[2017-08-13] MEDS: LEVAQUIN 750MG/150ML 750 MG/150 ML BAG IV SCH (10:12)
[2017-08-13] MEDS: PEPCID PO SCH (10:12)
--- NOTE | 2017-08-13 11:22 | Progress Note ---
Assessment and Plan Assessment: 1) Sepsis: better. Still low grade fever. Etiology most likely pneumonia. CRP= 24 2) Bilateral pneumonia with airways hyperreactivity : associated with elevated LFTs, hematuria and hyponatremia-suspicion for Legionnaires'. - influenza negative. - HIV neg 3) Elevated LFTs: viral hepatitis negative 4) Rhabdomyolysis: from rigors/chills - better 5) Hyponatremia - better 6) Thrombocytopenia - better Plan: -recheck LFTs and CRP/CK -f/u Legionella urine antigen, Streptococcus pneumoniae urine antigen -continue ceftriaxone and levaquin to cover CAP and Legionella - day 2 -treat airways hyperreactivity - on solumedrol -if clinically better will continue levaquin 750 mg po qday total [address] Tompkins for your consultation, will follow up with you. Cortney Neves MD Infectious Diseases Specialist [facility] M [phone] O [phone] Subjective Date of service: 08/13/17 Principal diagnosis: pneumonia Interval history: Feels better, however still wheezing and feels chest congestion. Tmax 100. 2 Microbiology: Blood cultures: 08/10 ngtd Urine cultures: Influenza: neg Current Antimicrobials: ceftriaxone levaquin Previous Antimicrobials: Zosyn 08/10 Vancomycin 08/10 Objective - Exam Narrative Exam: General appearance: Alert in NAD, conversant Eyes: anicteric sclerae, moist conjunctivae; no lid-lag; PERRLA HENT: Atraumatic; oropharynx clear Neck: Trachea midline; supple, no thyromegaly or lymphadenopathy Lungs: scattered anaya wheezings CV: RRR, no murmurs Abdomen: Soft, non-tender; no masses or hepatosplenomegaly Extremities: No peripheral edema or extremity lymphadenopathy Skin: Normal temperature, turgor and texture; no rash, ulcers or subcutaneous nodules Psych: Appropriate affect, alert and oriented to person, place and time. Neuro: alert and oriented x 3. Moving all extermities Lines: No CVL / PICC - Constitutional Vitals: Vital Signs Temp Pulse Resp BP Pulse Ox 97.3 F L 76 22 135/89 96 08/13/17 07:57 08/13/17 07:57 08/13/17 07:57 08/13/17 07:57 08/13/17 07:57 Temperature -Last 24 Hours Temperature 97.3 F Temperature 98.1 F Temperature 98.4 F Temperature 100.2 F Temperature 98.8 F - Labs CBC & Chem 7: 08/11/17 15:54 08/13/17 07:38 Labs: Abnormal lab results 08/13/17 08/13/17 Range/Units 07:38 07:38 Chloride 96.2 L (98-107) mmol/L Glucose 226 H (75-100) mg/dL Calcium 8.0 L (8.4-10.2) mg/dL Total Creatine Kinase 36013 H (55-170) units/L
--- NOTE | 2017-08-13 12:02 | Discharge Summary ---
Providers - Providers Date of Admission: 08/10/17 19:43 Attending physician: ROCHELLE BELL MD 08/11/17 06:57 Consult to Physician [CONS] Routine Consulting Provider: JOSESITO KLINE Reason For Exam: Sirs/Darren pneumonia Place consult to:: DR. WIN Notified:: DR. WIN Primary care physician: LEATHER CRAFTSMAN Hospitalization Condition: Good Hospital course: This is a 56-year-old male with no sig PMH presents to the ER with cough, malaise, mucus production, weakness, body aches for 3-4 days, and dark and Coca- [employer]a colored urine. Patient was found to have sepsis, pneumonia, rhabdomyolysis , and acute bronchitis. He received IV antibiotics, IV fluids. Nebulizers and steroids. Patient clinically improved and is being sent home on a course of antibiotics and steroid taper. Discharge diagnoses Sepsis Rhabdomyolysis, nontraumatic Bilateral bacterial pneumonia, most likely due to Gram positives Transaminitis Acute bronchitis Disposition: TO HOME OR SELFCARE Time spent for discharge: 33 minutes Core Measure Documentation - Palliative Care Palliative Care/ Comfort Measures: Not Applicable - Core Measures Any of the following diagnoses?: none Exam - Physical Exam Narrative exam: General.: Appears well, no distress, nontoxic HEENT: Moist mucous membranes, extraocular muscles intact, no lymphadenopathy Neck: supple Cardiac: S1-S2 heard Lungs: improved aeration Abdomen: soft , nontender, nondistended, bowel sounds positive Extremities: no edema clubbing or cyanosis Skin: no rash or lesions Neurologic: no gross focal deficits Psych: appropriate behavior, appropriate mood, corporative, judgment intact - Constitutional Vitals: Temp Pulse Resp BP Pulse Ox 97.3 F L 80 20 135/89 98 08/13/17 07:57 08/13/17 08:28 08/13/17 08:28 08/13/17 07:57 08/13/17 08:18 Plan Follow up with: PRIMARY CAREMD [Primary Care Provider] - 3-5 Days Prescriptions: Zolpidem [Ambien] 5 mg PO QHS #14 tablet Albuterol Sulfate [Ventolin HFA] 2 puff IH Q4H PRN #1 [email or web address] PRN Reason: Shortness Of Breath Amoxicillin/Potassium Clav [Augmentin 875-125 Tablet] 1 each PO Q12H #10 tablet Benzonatate [Tessalon Perles] 100 mg PO Q8HR #14 capsule guaiFENesin/CODEINE [Robitussin AC] 10 ml PO Q4H PRN #8 oz PRN Reason: Cough Prednisone [predniSONE 5 mg (6-Day Pack, 21 Tabs)] 5 mg PO .TAPER #1 tab.ds.pk
[2017-08-13 14:42] LABS: Alanine Aminotransferase 164 units/L (7-56); Albumin 3.7 g/dL (3.9-5)
[2017-08-13 14:43] LABS: C-Reactive Protein 8.4 mg/dL (0.00-1.30)
[2017-08-13 14:46] LABS: Bilirubin,Direct < 0.2 mg/dL (0-0.2)
[2017-08-13 17:52] VITALS: BP 117/65
[2017-08-14] MEDS ORDERED: LEVAQUIN PO SCH (10:00)
== END 2017-08-13 18:30 | disposition home or self-care (01) | DRG 871 ==
LOC: ED 19:13 → 3A 08-10 19:43
PROVIDERS: ADMIT Internal Medicine; ATTEND Internal Medicine
PROC: 3E0234Z Introduction of Serum, Toxoid and Vaccine into Muscle, Percutaneous Approach (ICD-10-PCS; principal; 2017-08-11)
DX: A41.9 Sepsis, unspecified organism (principal); J15.9 Unspecified bacterial pneumonia; M62.82 Rhabdomyolysis; E87.1 Hypo-osmolality and hyponatremia; D69.6 Thrombocytopenia, unspecified; J20.9 Acute bronchitis, unspecified; Z23 Encounter for immunization
CPT/HCPCS: 36415; 71020; 80048; 80053; 80074; 81001; 82140; 82550; 85025; 86140; 87040; 87086; 87400; 87449; 87806; 90686; 94640; 94760; J0696; J1650; J1956; J2543; J2920; J3370; J7030; J7040